=== PATIENT | male | born 1940 | race African-American/Black ===

== ENCOUNTER 2021-02-27 12:35 | Inpatient (IN) | payer MEDICARE, MEDICAID ==
[~2021-02-27] VITALS: Ht 188 cm; Wt 73.9 kg
[2021-02-27 13:40] LABS: CLARITY URINE CLEAR (CLEAR); COLOR URINE YELLOW (YELLOW); KETONES URINE NEGATIVE (NEGATIVE); LEUKOCYTE ESTERASE URINE NEGATIVE (NEGATIVE); NITRITE URINE NEGATIVE (NEGATIVE); OCCULT BLOOD URINE NEGATIVE (NEGATIVE); PROTEIN URINE NEGATIVE (NEGATIVE); SPECIFIC GRAVITY URINE 1.009 (1.005-1.030); UROBILINOGEN URINE 0.2 E.U./dL (0.2-1.0)
[2021-02-27 13:54] LABS: *AMPHETAMINES SCREEN URINE NEGATIVE (NEGATIVE); *BARBITURATES SCREEN URINE NEGATIVE (NEGATIVE)
[2021-02-27 13:55] LABS: *BENZODIAZEPINES SCREEN URINE NEGATIVE (NEGATIVE); *COCAINE SCREEN URINE NEGATIVE (NEGATIVE); CANNABINOID URINE SCREEN NEGATIVE (NEGATIVE); METHADONE URINE SCREEN NEGATIVE (NEGATIVE); OPIATES URINE SCREEN NEGATIVE (NEGATIVE); PHENCYCLIDINE URINE SCREEN NEGATIVE (NEGATIVE)
[2021-02-27 14:47] LABS: BASOPHILS % 1.2 % (0.0-2.0); EOSINOPHILS % 1.8 % (0.0-5.0); HEMATOCRIT. 40.3 % (42.0-52.0); LYMPHOCYTES % 30.8 % (20.0-50.0); MEAN CORPUSCULAR HEMOGLOBIN 28.8 pg (28.0-32.0); MEAN CORPUSCULAR VOLUME 89.7 fL (80.0-94.0); MEAN PLATELET VOLUME 6.6 fl (7.4-10.4); MONOCYTES % 9.3 % (2.0-8.0); NEUTROPHILS % 56.9 % (40.0-76.0); PLATELET 241 x1000/uL (130-400); RED CELL DISTRIBUTION WIDTH 15.2 % (11.6-14.6)
[2021-02-27 14:56] LABS: CHLORIDE 108 mEq/L (98-107)
[2021-02-27 14:59] LABS: ETHANOL BLOOD 294 mg/dL
[2021-02-27] MEDS ORDERED: FOLIC ACID 1 MG, THIAMINE HCL 100 MG, MVI, ADULT NO.1 10 ML in DEXTROSE 5% WATER 1,000 ML IV ONE (15:00)
[2021-02-27] MEDS ORDERED: LEVETIRACETAM 1000MG PREMIX 100 ML IV ONE (15:15)
[2021-02-27 15:24] LABS: INR 1.1; PARTIAL THROMBOPLASTIN TIME 28.5 sec (23.4-31.0); PROTHROMBIN TIME 11.4 sec (9.6-11.0)
[2021-02-27] MEDS ORDERED: IPRATROPIUM/ALBUTEROL 0.5-3(2.5)MG/3ML NEB HHN PRN (17:45)
[2021-02-27] MEDS ORDERED: NALOXONE HCL 0.4MG/ML VIAL IV PRN (19:30)
[2021-02-27] MEDS ORDERED: NICARDIPINE 40 MG/200 ML PREMIX 200 ML IV PRN (19:30)
[2021-02-27] MEDS ORDERED: MORPHINE SULFATE 2 MG/ML CPJ (NOT FOR IM USE) IV PRN (19:30)
[2021-02-28] MEDS ORDERED: NICARDIPINE 50 MG in SODIUM CHLORIDE 0.9% 250 ML IV PRN (01:00)
[2021-02-28] MEDS ORDERED: ONDANSETRON HCL 4MG/2ML INJ IV PRN (09:45)
[2021-02-28] MEDS ORDERED: IPRATROPIUM/ALBUTEROL 0.5-3(2.5)MG/3ML NEB HHN PRN (09:45)
[2021-02-28] MEDS ORDERED: HYDROCODONE/ACETAMINOPHEN 5/325MG TABLET PO PRN (09:45)
[2021-02-28] MEDS ORDERED: ACETAMINOPHEN 325MG TABLET PO PRN ×2 (09:45→14:30)
[2021-02-28 12:46] LABS: BASOPHILS % 1.3 % (0.0-2.0); HEMATOCRIT. 47.1 % (42.0-52.0); HEMOGLOBIN. 15.9 g/dL (14.0-18.0); LYMPHOCYTES % 28.2 % (20.0-50.0); MEAN CORPUSCULAR VOLUME 85.8 fL (80.0-94.0); MEAN PLATELET VOLUME 6.3 fl (7.4-10.4); MONOCYTES % 8.5 % (2.0-8.0); PLATELET 340 x1000/uL (130-400); RED BLOOD CELL COUNT 5.48 mill/uL (4.7-6.1); RED CELL DISTRIBUTION WIDTH 15.4 % (11.6-14.6)
[2021-02-28 12:50] LABS: CHLORIDE 103 mEq/L (98-107)
[2021-02-28 12:58] LABS: LDL CHOLESTEROL 123 mg/dL (5-100)
[2021-02-28 12:59] LABS: HDL CHOLESTEROL 57 mg/dL (40-59)
[2021-02-28 13:00] LABS: T4 FREE 1.04 ng/dL (0.76-1.46)
[2021-02-28] MEDS ORDERED: ACETAMINOPHEN 650MG SUPP PR PRN (14:30)
[2021-02-28] MEDS ORDERED: GADOTERATE MEGLUMINE 5 MMOL/10 ML VIAL IV ONE (14:52)
[2021-02-28] MEDS: DEXT 5%/0.45% NACL 1000ML 1,000 ML IV SCH (15:00)
[2021-02-28] MEDS: LEVETIRACETAM 500MG PREMIX 100 ML IV SCH ×2 (16:51→17:20)
[2021-02-28] MEDS: FAMOTIDINE 20MG/2ML VIAL IV SCH (16:51)
[2021-02-28] MEDS: MVI, ADULT NO.1 10 ML, FOLIC ACID 1 MG, THIAMINE HCL 100 MG in DEXT 5%/0.45% NACL 1000M... IV SCH (17:20)
[2021-02-28] MEDS: LORAZEPAM 2MG/ML CPJ IV PRN (20:28)
[2021-03-01] VITALS (56 sets, daily range): BP systolic 59–164; BP diastolic 41–79
[2021-03-01] MEDS: DEXT 5%/0.45% NACL 1000ML 1,000 ML IV SCH (05:10)
[2021-03-01] MEDS ORDERED: NICARDIPINE 100 MG in SODIUM CHLORIDE 0.9% 60 ML IV PRN (08:15)
[2021-03-01] MEDS ORDERED: THROMBIN (BOVINE) 5000 UNITS/VIAL TOP ONE (08:28)
[2021-03-01] MEDS ORDERED: GENTAMICIN SULF 40MG/ML 2ML VIAL ONE (08:28)
[2021-03-01] MEDS ORDERED: BACITRACIN 15GM TUBE TOP ONE (08:28)
[2021-03-01] MEDS ORDERED: PROPOFOL 10MG/ML 100ML 100 ML IV ONE (08:39)
[2021-03-01] MEDS ORDERED: ALBUMIN HUMAN 12.5G/250ML (5%) IV ONE (09:44)
[2021-03-01] MEDS ORDERED: ALBUMIN HUMAN 25GM/100ML (25%) IV NR ×2 (09:45)
[2021-03-01] MEDS ORDERED: ALBUMIN HUMAN 12.5GM/50ML (25%) IV ONE (09:47)
[2021-03-01] MEDS: FAMOTIDINE 20MG/2ML VIAL IV SCH (10:27)
[2021-03-01] MEDS: DEXT 5%/LACTATED RINGERS 1,000 ML IV SCH (10:27)
[2021-03-01] MEDS: LEVETIRACETAM 500MG PREMIX 100 ML IV SCH ×2 (11:44→20:51)
[2021-03-01] MEDS: MORPHINE SULFATE 4 MG/ML CPJ (NOT FOR IM USE) IV PRN ×4 (11:44→21:14)
[2021-03-01] MEDS ORDERED: DEXTROSE 50% WATER 50ML SYRINGE IV PRN (12:15)
[2021-03-01] MEDS: INSULIN LISPRO 100 UNITS/ML SUBCUT SCH ×3 (12:15→23:49)
[2021-03-01] MEDS: BLOOD SUGAR DIAGNOSTIC STRIP TEST SCH ×3 (12:25→23:43)
[2021-03-01] MEDS: HYDRALAZINE 20MG/ML VIAL IV PRN (12:26)
[2021-03-01] MEDS ORDERED: CEFAZOLIN SODIUM 1000MG/VIAL IV SCH (14:00)
[2021-03-01 15:14] LABS: BASOPHILS % 0.6 % (0.0-2.0); EOSINOPHILS % 1.5 % (0.0-5.0); HEMATOCRIT. 40.6 % (42.0-52.0); HEMOGLOBIN. 13.5 g/dL (14.0-18.0); MEAN CORPUSCULAR HEMOGLOBIN 28.4 pg (28.0-32.0); MEAN CORPUSCULAR VOLUME 85.1 fL (80.0-94.0); MEAN PLATELET VOLUME 6.8 fl (7.4-10.4); MONOCYTES % 9.8 % (2.0-8.0); NEUTROPHILS % 68.1 % (40.0-76.0); PLATELET 298 x1000/uL (130-400); RED BLOOD CELL COUNT 4.77 mill/uL (4.7-6.1); RED CELL DISTRIBUTION WIDTH 15.1 % (11.6-14.6)
[2021-03-01 15:17] LABS: CHLORIDE 106 mEq/L (98-107)
[2021-03-01] MEDS: CEFAZOLIN 1000MG PREMIX 50 ML IV SCH ×2 (16:04→23:47)
[2021-03-01] MEDS: MVI, ADULT NO.1 10 ML, FOLIC ACID 1 MG, THIAMINE HCL 100 MG in DEXT 5%/0.45% NACL 1000M... IV SCH (17:41)
[2021-03-02] VITALS (85 sets, daily range): BP systolic 106–181; BP diastolic 58–122
[2021-03-02] MEDS: DEXT 5%/LACTATED RINGERS 1,000 ML IV SCH ×2 (00:55→18:38)
[2021-03-02] MEDS: MORPHINE SULFATE 4 MG/ML CPJ (NOT FOR IM USE) IV PRN ×4 (01:43→23:13)
[2021-03-02 05:34] LABS: CHLORIDE 106 mEq/L (98-107)
[2021-03-02 05:41] LABS: BASOPHILS % 0.6 % (0.0-2.0); EOSINOPHILS % 1.6 % (0.0-5.0); HEMATOCRIT. 38.9 % (42.0-52.0); HEMOGLOBIN. 12.9 g/dL (14.0-18.0); LYMPHOCYTES % 7.4 % (20.0-50.0); MEAN CORPUSCULAR HEMOGLOBIN 28.6 pg (28.0-32.0); MEAN CORPUSCULAR VOLUME 85.9 fL (80.0-94.0); MEAN PLATELET VOLUME 7.4 fl (7.4-10.4); MONOCYTES % 5.9 % (2.0-8.0); NEUTROPHILS % 84.5 % (40.0-76.0); PLATELET 278 x1000/uL (130-400); RED BLOOD CELL COUNT 4.53 mill/uL (4.7-6.1); RED CELL DISTRIBUTION WIDTH 15.3 % (11.6-14.6)
[2021-03-02] MEDS: INSULIN LISPRO 100 UNITS/ML SUBCUT SCH ×4 (06:00→23:12)
[2021-03-02] MEDS: BLOOD SUGAR DIAGNOSTIC STRIP TEST SCH ×4 (06:20→23:12)
[2021-03-02] MEDS: FAMOTIDINE 20MG/2ML VIAL IV SCH (08:17)
[2021-03-02] MEDS: LEVETIRACETAM 500MG PREMIX 100 ML IV SCH ×2 (08:18→20:27)
[2021-03-02] MEDS: CEFAZOLIN 1000MG PREMIX 50 ML IV SCH (08:18)
[2021-03-02] MEDS: LORAZEPAM 2MG/ML CPJ IV PRN (11:29)
[2021-03-02] MEDS: HYDRALAZINE 20MG/ML VIAL IV PRN (13:24)
[2021-03-02] MEDS ORDERED: CLONIDINE 0.1MG TABLET PO PRN (15:00)
[2021-03-02] MEDS: AMLODIPINE 10MG TABLET PO SCH (15:01)
[2021-03-02] MEDS: MVI, ADULT NO.1 10 ML, FOLIC ACID 1 MG, THIAMINE HCL 100 MG in DEXT 5%/0.45% NACL 1000M... IV SCH (16:06)
[2021-03-03] VITALS (96 sets, daily range): BP systolic 120–185; BP diastolic 67–130
[2021-03-03] MEDS: HYDRALAZINE 20MG/ML VIAL IV PRN ×2 (01:25→12:32)
[2021-03-03] MEDS: MORPHINE SULFATE 4 MG/ML CPJ (NOT FOR IM USE) IV PRN ×3 (03:20→22:55)
[2021-03-03] MEDS: BLOOD SUGAR DIAGNOSTIC STRIP TEST SCH ×4 (05:28→23:33)
[2021-03-03] MEDS: INSULIN LISPRO 100 UNITS/ML SUBCUT SCH ×3 (05:28→16:58)
[2021-03-03 05:43] LABS: BASOPHILS % 0.8 % (0.0-2.0); EOSINOPHILS % 5.6 % (0.0-5.0); HEMATOCRIT. 38.8 % (42.0-52.0); LYMPHOCYTES % 13.2 % (20.0-50.0); MEAN CORPUSCULAR HEMOGLOBIN 28.2 pg (28.0-32.0); MEAN CORPUSCULAR VOLUME 84.2 fL (80.0-94.0); MEAN PLATELET VOLUME 6.9 fl (7.4-10.4); MONOCYTES % 12.2 % (2.0-8.0); NEUTROPHILS % 68.2 % (40.0-76.0); PLATELET 277 x1000/uL (130-400); RED CELL DISTRIBUTION WIDTH 15.3 % (11.6-14.6)
[2021-03-03 05:49] LABS: CHLORIDE 103 mEq/L (98-107)
[2021-03-03] MEDS: FAMOTIDINE 20MG/2ML VIAL IV SCH (08:17)
[2021-03-03] MEDS: AMLODIPINE 10MG TABLET PO SCH (08:17)
[2021-03-03] MEDS: LEVETIRACETAM 500MG PREMIX 100 ML IV SCH ×2 (08:17→20:00)
[2021-03-03] MEDS: DEXT 5%/LACTATED RINGERS 1,000 ML IV SCH (09:47)
[2021-03-03] MEDS ORDERED: LIDOCAINE HCL/PF 1% 2ML VIAL ONE (11:14)
[2021-03-03] MEDS ORDERED: POTASSIUM CHLORIDE 20MEQ TABLET SR PO NR (11:30)
[2021-03-03 11:35] LABS: BG BASE EXCESS 1.9 mmol/L (-2.0-2.0); BG CARBOXYHEMOGLOBIN 1.2 % (0.5-1.5); BG DEOXYHEMOGLOBIN 6.8 % (0.0-5.0); BG HCO3 ACT 25.1 mmol/L (22.0-26.0); BG METHEMOGLOBIN 0.3 % (0.0-1.5); BG OXYGEN SATURATION 93.1 % (92.0-98.5); BG OXYHEMOGLOBIN 91.7 % (94.0-97.0); BG PH 7.473 (7.350-7.450); BG PO2 63.4 mmHg (75.0-100.0); BG SAMPLE SITE RIGHT RADIAL; BG TOTAL HEMOGLOBIN 14.6 g/dL (12.0-18.0); BG VENT MODE ROOM AIR
[2021-03-03] MEDS: HYDRALAZINE HCL 25MG TABLET PO SCH ×2 (14:39→21:48)
[2021-03-03] MEDS: MVI, ADULT NO.1 10 ML, FOLIC ACID 1 MG, THIAMINE HCL 100 MG in DEXT 5%/0.45% NACL 1000M... IV SCH (16:58)
[2021-03-03] MEDS ORDERED: MORPHINE SULFATE 2 MG/ML CPJ (NOT FOR IM USE) IV NR (20:30)
[2021-03-04] VITALS (33 sets, daily range): BP systolic 112–176; BP diastolic 68–99
[2021-03-04] MEDS: HYDRALAZINE 20MG/ML VIAL IV PRN (00:43)
[2021-03-04] MEDS: INSULIN LISPRO 100 UNITS/ML SUBCUT SCH ×4 (00:44→17:47)
[2021-03-04] MEDS: MORPHINE SULFATE 4 MG/ML CPJ (NOT FOR IM USE) IV PRN ×4 (01:19→15:24)
[2021-03-04] MEDS: HYDRALAZINE HCL 25MG TABLET PO SCH ×3 (05:08→22:38)
[2021-03-04 05:36] LABS: BASOPHILS % 0.4 % (0.0-2.0); EOSINOPHILS % 1.9 % (0.0-5.0); HEMATOCRIT. 40.2 % (42.0-52.0); LYMPHOCYTES % 18.9 % (20.0-50.0); MEAN CORPUSCULAR HEMOGLOBIN 29.4 pg (28.0-32.0); MEAN CORPUSCULAR VOLUME 84.7 fL (80.0-94.0); MEAN PLATELET VOLUME 6.8 fl (7.4-10.4); MONOCYTES % 13.4 % (2.0-8.0); NEUTROPHILS % 65.4 % (40.0-76.0); PLATELET 336 x1000/uL (130-400); RED BLOOD CELL COUNT 4.75 mill/uL (4.7-6.1); RED CELL DISTRIBUTION WIDTH 15.2 % (11.6-14.6)
[2021-03-04] MEDS: BLOOD SUGAR DIAGNOSTIC STRIP TEST SCH ×3 (05:37→17:47)
[2021-03-04 05:40] LABS: CHLORIDE 101 mEq/L (98-107)
[2021-03-04] MEDS: LEVETIRACETAM 500MG PREMIX 100 ML IV SCH ×2 (08:38→22:38)
[2021-03-04] MEDS: FAMOTIDINE 20MG/2ML VIAL IV SCH (08:38)
[2021-03-04] MEDS: AMLODIPINE 10MG TABLET PO SCH (08:38)
[2021-03-04 13:05] LABS: BG BASE EXCESS -1.4 mmol/L (-2.0-2.0); BG CARBOXYHEMOGLOBIN 0.9 % (0.5-1.5); BG FRACTION INSPIRED OXYGEN 21; BG HCO3 ACT 22.4 mmol/L (22.0-26.0); BG METHEMOGLOBIN 0.3 % (0.0-1.5); BG OXYGEN SATURATION 93.9 % (92.0-98.5); BG OXYHEMOGLOBIN 92.8 % (94.0-97.0); BG PCO2 35.1 mmHg (35.0-45.0); BG PH 7.423 (7.350-7.450); BG PO2 69.5 mmHg (75.0-100.0); BG SAMPLE SITE LEFT RADIAL; BG TOTAL HEMOGLOBIN 14.2 g/dL (12.0-18.0); BG VENT MODE ROOM AIR
[2021-03-04] MEDS: MVI, ADULT NO.1 10 ML, FOLIC ACID 1 MG, THIAMINE HCL 100 MG in DEXT 5%/0.45% NACL 1000M... IV SCH (15:23)
[2021-03-04] MEDS: DEXT 5%/LACTATED RINGERS 1,000 ML IV SCH (19:35)
[2021-03-05] VITALS: BP 120/74
[2021-03-05] MEDS: BLOOD SUGAR DIAGNOSTIC STRIP TEST SCH ×5 (00:49→23:51)
[2021-03-05 04:00] VITALS: BP 110/58
[2021-03-05] MEDS: INSULIN LISPRO 100 UNITS/ML SUBCUT SCH ×5 (05:45→23:51)
[2021-03-05] MEDS: HYDRALAZINE HCL 25MG TABLET PO SCH ×3 (05:46→21:26)
[2021-03-05 07:28] LABS: BASOPHILS % 0.7 % (0.0-2.0); EOSINOPHILS % 3.9 % (0.0-5.0); HEMATOCRIT. 39.5 % (42.0-52.0); HEMOGLOBIN. 13.4 g/dL (14.0-18.0); LYMPHOCYTES % 20.8 % (20.0-50.0); MEAN CORPUSCULAR HEMOGLOBIN 28.5 pg (28.0-32.0); MEAN PLATELET VOLUME 6.9 fl (7.4-10.4); MONOCYTES % 14.9 % (2.0-8.0); NEUTROPHILS % 59.7 % (40.0-76.0); PLATELET 313 x1000/uL (130-400); RED BLOOD CELL COUNT 4.71 mill/uL (4.7-6.1); RED CELL DISTRIBUTION WIDTH 15.4 % (11.6-14.6)
[2021-03-05 07:42] LABS: CHLORIDE 103 mEq/L (98-107)
[2021-03-05 08:00] VITALS: BP 127/76
[2021-03-05] MEDS: LEVETIRACETAM 500MG PREMIX 100 ML IV SCH ×2 (09:28→21:00)
[2021-03-05] MEDS: FAMOTIDINE 20MG/2ML VIAL IV SCH (09:28)
[2021-03-05] MEDS: AMLODIPINE 10MG TABLET PO SCH (09:29)
[2021-03-05] MEDS ORDERED: POTASSIUM CHLORIDE 20MEQ TABLET SR PO NR (11:30)
[2021-03-05 12:00] VITALS: BP 135/81
[2021-03-05] MEDS: DEXT 5%/LACTATED RINGERS 1,000 ML IV SCH (12:38)
[2021-03-05 16:00] VITALS: BP 142/60
[2021-03-05] MEDS: MVI, ADULT NO.1 10 ML, FOLIC ACID 1 MG, THIAMINE HCL 100 MG in DEXT 5%/0.45% NACL 1000M... IV SCH (17:05)
[2021-03-05 20:00] VITALS: BP 142/71
[2021-03-06 04:00] VITALS: BP 145/78
[2021-03-06] MEDS: DEXT 5%/LACTATED RINGERS 1,000 ML IV SCH (04:55)
[2021-03-06] MEDS: BLOOD SUGAR DIAGNOSTIC STRIP TEST SCH ×2 (06:00→11:57)
[2021-03-06] MEDS: HYDRALAZINE HCL 25MG TABLET PO SCH ×2 (06:00→14:03)
[2021-03-06] MEDS: INSULIN LISPRO 100 UNITS/ML SUBCUT SCH ×2 (06:00→12:00)
[2021-03-06 08:00] VITALS: BP 133/80
[2021-03-06] MEDS ORDERED: LEVETIRACETAM 500MG TABLET PO SCH (09:00)
[2021-03-06] MEDS ORDERED: FAMOTIDINE 20MG TABLET PO SCH (09:00)
[2021-03-06] MEDS: AMLODIPINE 10MG TABLET PO SCH (11:57)
[2021-03-06 12:00] VITALS: BP 143/75
[2021-03-06 13:12] VITALS: BP 143/75
== END 2021-03-06 15:30 | DRG 25 ==
LOC: ER 13:22 → MICUSO 15:12 → EDBEDREQ 15:31 → 5EST 03-01 08:11 → MICUNO 03-01 08:28 → 8WST 03-04 16:30
PROVIDERS: ADMIT Internal Medicine; ATTEND Internal Medicine
PROC: 00C40ZZ Extirpation of Matter from Intracranial Subdural Space, Open Approach (ICD-10-PCS; principal; 2021-03-03)
PROC: 0NQ00ZZ Repair Skull, Open Approach (ICD-10-PCS; 2021-03-03)
PROC: 4A103BD Monitoring of Intracranial Pressure, Percutaneous Approach (ICD-10-PCS; 2021-03-03)
DX: I62.01 Nontraumatic acute subdural hemorrhage (principal); G92 Toxic encephalopathy; D64.9 Anemia, unspecified; D72.810 Lymphocytopenia; F10.129 Alcohol abuse with intoxication, unspecified; I10 Essential (primary) hypertension; Y90.8 Blood alcohol level of 240 mg/100 ml or more; E11.65 Type 2 diabetes mellitus with hyperglycemia; Z20.822 Contact with and (suspected) exposure to COVID-19; E87.6 Hypokalemia; Z91.81 History of falling; Z86.16 Personal history of COVID-19; W19.XXXA Unspecified fall, initial encounter
CPT/HCPCS: 36415; 36600; 70553; 71045; 80048; 80053; 80061; 80305; 80307; 80320; 80329; 81003; 82140; 82375; 82805; 82962; 83036; 84439; 84443; 84484; 85025; 86850; 86900; 87070; 87075; 87426; 92523; 92610; 93005; 93306; 93880; 97110; 97116; 97162; 97166; 97530; 99291; A9577; C1713; J0360; J0690; J1580; J1815; J1953; J2060; J2270; J2704; J3411; J3490; J7040; J7050; J7070; J7121; P9041; P9047; G0480